=== PATIENT | male | born 1945 ===

== ENCOUNTER 2019-02-08 10:59 | Day surgery (SDC) | payer MEDICARE, SELFPAY ==
[2019-02-08] MEDS: PROPARACAINE 0.5% OPHTH SOL 2 DROPS EYE-OP (11:20)
[2019-02-08] MEDS: CATARACT EYE COMPOUND (10 DROPS/SYRINGE) 3 DROPS EYE-OP (11:23)
[2019-02-08 11:24] VITALS: BMI 25.3
--- NOTE | 2019-02-08 11:50 | PM.PREOP ---
Pre-operative Note Interval Note History & Physical reviewed/Exam performed by Physician: No Changes to H&P: No
--- NOTE | 2019-02-08 11:50 | PM.OP.1 ---
Operative Date/Time/Diagnoses Pre-op diagnosis: Nuclear Cataract Left eye Post-op diagnosis: same Procedure & Clinicians Surgeon: Esteban Sharpe Anesthesia Type: MAC +/- and Sedation Operative Notes Procedure in detail: Patient brought to the operating suite. Tetracaine drops placed in the left eye. Patient was prepped and draped in sterile manner. Wire lid speculum was placed in the eye. Betadine drops were placed on the eye. This was irrigated. Lidocaine jelly was placed on the eye. A paracentesis port was created with a side-port blade. 0.1 mL 1% preservative free lidocaine was injected into the anterior chamber. The anterior chamber was deepened with viscoelastic. 2.6 mm keratome was used to create a temporal clear corneal incision. Cystotome and Utrata forceps were used to create continuous tear capsulorrhexis. Balanced salt solution was used to hydro dissect the nucleus. The phacoemulsification handpiece was inserted and the nucleus was removed using the stop and chop technique. The irrigation aspiration handpiece was inserted and the remaining cortex was removed. Anterior chamber was deepened with viscoelastic. An Giordano ZCB00 intraocular lens with a power of 21.5 was injected into the capsular bag. Irrigation aspiration handpiece was inserted and the remaining viscoelastic was removed. Incision was hydrated with balanced salt solution and found to be leak free with pressure with Weck-Jamee sponges. 0.1 mL Vigamox injected anterior chamber. 0.3 mL Kenalog 10 mg was injected subconjunctivally. Lid speculum was removed. The patient left the operating room in excellent condition. Complications: none Post-operative Condition: stable Disposition: same day surgery
--- NOTE | 2019-02-08 12:07 | SUR.OPER ---
Supine on eye stretcher, head on extension cradle secured with tape. Arms tucked at sides with blanket. Pillow under knees.
[2019-02-08] MEDS: TRIAMCINOLONE 50 MG/5 ML VIAL INJ (12:08)
[2019-02-08] MEDS: PHENYLEPHRINE/LIDOCAINE VIAL (OR) 0.2 ML EYE-OP (12:08)
[2019-02-08] MEDS: TETRACAINE 0.5% OPHTH DROPS 4 ML 2 DROPS EYE-OP (12:09)
[2019-02-08] MEDS: CHONDROIDTIN/SOD HYALURONATE 1.05 ML SYRINGE INTRAOCULA (12:09)
[2019-02-08] MEDS: LIDOCAINE JELLY 2% 5 ML 1 APPLIC TOP (12:09)
[2019-02-08] MEDS: MOXIFLOXACIN INJ 5 MG/ML VIAL EYE-OP (12:10)
[2019-02-08] MEDS: BALANCED SALT IRRIG SOLN NO.2 500 ML, EPINEPHrine 1 MG IRR (12:10)
[2019-02-08 12:20] VITALS: BP 147/80; PULSE 60; RESP 15; TEMP 36.7; O2SAT 99
--- NOTE | 2019-02-08 13:44 | SUR.PHASEII ---
1232 Stable, ready for discharge, IV dc'd, tolerating Po well. Cheerful, questions answered by Dr. Sharpe.
== END 2019-02-08 12:38 | disposition home or self-care (01) ==
LOC: OR 11:03
PROVIDERS: PCP Family Medicine; Visit Provider Ophthalmology
PROC: (CPT 66984; principal; 2019-02-08 12:45)
DX: H25.12 Age-related nuclear cataract, left eye (principal); I10 Essential (primary) hypertension
CPT/HCPCS: 66984; J0171; J2250; J3301

== ENCOUNTER 2019-02-22 11:00 | Day surgery (SDC) | payer MEDICARE, SELFPAY ==
[2019-02-22] MEDS: PROPARACAINE 0.5% OPHTH SOL 2 DROPS EYE-OP (11:20)
[2019-02-22 11:21] VITALS: BP 163/83; PULSE 76; RESP 16; TEMP 36.1; O2SAT 98; BMI 25.3
[2019-02-22] MEDS: CATARACT EYE COMPOUND (10 DROPS/SYRINGE) 3 DROPS EYE-OP (11:25)
--- NOTE | 2019-02-22 12:30 | PM.PREOP ---
Pre-operative Note Interval Note History & Physical reviewed/Exam performed by Physician: No Changes to H&P: No
--- NOTE | 2019-02-22 12:30 | PM.OP.1 ---
Operative Date/Time/Diagnoses Pre-op diagnosis: Nuclear cataract right eye Procedure & Clinicians Procedure: Cataract Surgery Same procedure as scheduled: Yes Surgeon: Esteban Sharpe Anesthesia Type: MAC +/- and Sedation Operative Notes Procedure in detail: Patient brought to the operating suite. Tetracaine drops placed in the right eye. Patient was prepped and draped in sterile manner. Wire lid speculum was placed in the eye. Betadine drops were placed on the eye. This was irrigated. Lidocaine jelly was placed on the eye. A paracentesis port was created with a side-port blade. 0.1 mL 1% preservative free lidocaine was injected into the anterior chamber. The anterior chamber was deepened with viscoelastic. 2.6 mm keratome was used to create a temporal clear corneal incision. Cystotome and Utrata forceps were used to create continuous tear capsulorrhexis. Balanced salt solution was used to hydro dissect the nucleus. The phacoemulsification handpiece was inserted and the nucleus was removed using the stop and chop technique. The irrigation aspiration handpiece was inserted and the remaining cortex was removed. Anterior chamber was deepened with viscoelastic. An Giordano ZCB00 intraocular lens with a power of 21.5 was injected into the capsular bag. Irrigation aspiration handpiece was inserted and the remaining viscoelastic was removed. Incision was hydrated with balanced salt solution and found to be leak free with pressure with Weck-Jamee sponges. 0.1 mL Vigamox injected anterior chamber. 0.3 mL Kenalog 10 mg was injected subconjunctivally. Lid speculum was removed. The patient left the operating room in excellent condition. Complications: none Post-operative Condition: stable Disposition: same day surgery
[2019-02-22] MEDS: BALANCED SALT IRRIG SOLN NO.2 500 ML, EPINEPHrine 1 MG IRR (12:44)
[2019-02-22] MEDS: LIDOCAINE JELLY 2% 5 ML 1 APPLIC TOP (12:45)
[2019-02-22] MEDS: TETRACAINE 0.5% OPHTH DROPS 4 ML 2 DROPS EYE-OP (12:45)
[2019-02-22] MEDS: CHONDROIDTIN/SOD HYALURONATE 1.05 ML SYRINGE INTRAOCULA (12:45)
[2019-02-22] MEDS: PHENYLEPHRINE/LIDOCAINE VIAL (OR) 0.2 ML EYE-OP (12:46)
[2019-02-22] MEDS: TRIAMCINOLONE 50 MG/5 ML VIAL INJ (12:46)
[2019-02-22] MEDS: MOXIFLOXACIN INJ 5 MG/ML VIAL EYE-OP (12:46)
[2019-02-22 13:02] VITALS: BP 144/80; PULSE 65; RESP 16; TEMP 36.2; O2SAT 99
== END 2019-02-22 13:16 | disposition home or self-care (01) ==
PROVIDERS: PCP Family Medicine; Visit Provider Ophthalmology
PROC: (CPT 66984; principal; 2019-02-22 12:45)
DX: H25.11 Age-related nuclear cataract, right eye (principal); I10 Essential (primary) hypertension
CPT/HCPCS: 66984; J0171; J2250; J3301

== ENCOUNTER → 2019-03-01 08:59 | Outpatient (CLI) | payer MEDICARE, SELFPAY ==
--- NOTE | 2019-03-01 | DI.US.S_ITS ---
PROCEDURE: US RENAL COMPLETE INDICATIONS: CHRONIC KIDNEY DISEASE, STAGE 3 TECHNIQUE: Real-time scanning was performed of the kidneys and bladder, with image documentation. COMPARISON: None. FINDINGS: Kidneys: Kidneys are normal in size. Right kidney measures 11.3 cm long; left kidney measures 11.0 cm long. Right renal cortical thickness is 1.1 cm; left renal cortical thickness is 1.6 cm. Renal cortical echotexture is normal. No hydronephrosis or nephrolithiasis. No suspicious solid mass lesions, and there is one small right-sided simple cyst measuring up to 2.2 x 2.4 cm at the inferior cortex. A 1.7 cm superior simple left renal cortical cyst is present in addition to an inferior simple 1.9 cm left renal cortical cyst. Bilateral extrarenal pelvis morphology. Bladder: Pre-void bladder volume is 75 mL. Post-void residual is 25 mL. Pre-void images demonstrate no intraluminal masses or stones. On pre-void images, bilateral ureteral jets are noted with color Doppler interrogation. (Of note, ureteral jets may not be detectable in up to 25% of cases due to insufficient differences in specific gravity between ureteral and bladder urine). A small amount of debris was seen floating freely within the urine within the bladder lumen but no calculus is found. Miscellaneous: No free pelvic fluid. IMPRESSION: Bilateral extrarenal pelvis, with several small renal cortical cysts are present bilaterally. No urinary tract stone or hydronephrosis found. Note is made of a small amount of debris floating freely within the urine within the bladder lumen where no mass or calculus is identified. Overall the renal cortex thickness and craniocaudad length is normal for age. Dictated by: Forrest Dee M.D. on 03/01/2019 at 10:47 Approved by: Forrest Dee M.D. on 03/01/2019 at 10:50
== END ==
PROVIDERS: PCP Family Medicine; Visit Provider Family Medicine
DX: N18.3 Chronic kidney disease, stage 3 (moderate) (principal); N28.1 Cyst of kidney, acquired
CPT/HCPCS: 76770

== ENCOUNTER → 2019-07-12 10:35 | Outpatient (CLI) | payer MEDICARE, SELFPAY ==
--- NOTE | 2019-07-12 | DI.MRI.S_ITS ---
PROCEDURE: MR PELIS WO/W CON INDICATIONS: PROSTATE CANCER TECHNIQUE: Coronal HASTE, axial T1 FSE with fat saturation, 3-plane nonbreath-hold T2 FSE. After the administration of contrast, dynamic axial, delayed axial and coronal VIBE or 2-D FLASH with fat saturation through the pelvis. Optional diffusion weighted imaging and ADC may be performed. COMPARISON: None. FINDINGS: Image quality: Diffusion weighted and dynamic contrast enhanced images are diagnostic. Prostate: Gland size is 5.2 x 4.3 x 4.5 cm; ellipsoid gland volume is 52.3 mL. There is a lentiform T1 hyperintense area in the left transition zone in the mid gland level are most suggestive of post biopsy hemorrhage. All these findings are superimposed on mild hypertrophy of the transitional zone and central gland which demonstrates heterogeneous signal. Lesion size(s): Lesion 1: 2.7 x 1.7 cm in coronal plane. Lesion location(s) (sector): Lesion 1: Left anterior transition zone extending from mid mid gland to base. Lesion description: Lesion 1: Oval, vertically oriented mass with an indistinct margin. No encapsulation. There is likely involvement of the adjacent anterior fibromuscular stroma and slight mass effect on the mildly hypertrophied adjacent central zone with slight rightward displacement of the urethra. The portion of the tumor at the bladder base abuts, and slightly displaces the neck of the urinary bladder. T2 weighted imaging (T2WI) morphology score: Lesion 1: 5 Diffusion weighted imaging (DWI) morphology score: Lesion 1: 5 Dynamic contrast enhancement (DCE): Lesion 1: Present Lesion PI-RADS score: Lesion 1: PI-RADS 5 Genitourinary system: Bladder wall thickness is normal. Distal ureters are non distended. Bowel and peritoneum: No pathologic free pelvic fluid. Inferior colon and small bowel loops are normal in caliber. Nodes and vessels: No pelvic or inguinal adenopathy by size criteria. Iliac vessels are normal in caliber. Soft tissues: No inguinal hernias. Bones: Marrow demonstrates normal overall signal, without lesions to suggest metastases. IMPRESSION: 1. 2.7 cm PI-RADS 5 lesion suspicious for prostate carcinoma in the anterior left transition zone. 2. Probable postbiopsy changes in the left peripheral zone. 3. Mild BPH. 4. No evidence of extraprostatic bladder invasion or adenopathy. Dictated by: Camryn Smith M.D. on 07/12/2019 at 18:05 Approved by: Camryn Smith M.D. on 07/12/2019 at 18:45
== END ==
PROVIDERS: PCP Family Medicine; Referring Provider Specialist; Visit Provider Specialist
DX: C61 Malignant neoplasm of prostate (principal)
CPT/HCPCS: 72197; A9579

== ENCOUNTER → 2019-09-09 12:05 | Outpatient (CLI) | payer MEDICARE, SELFPAY ==
--- NOTE | 2019-09-09 | DI.US.S_ITS ---
PROCEDURE: US PERIPH VENOUS LOW EXTREM BI INDICATIONS: BILATERAL LEG SWELLING TECHNIQUE: Real-time imaging, as well as color and pulse Doppler interrogation, were performed of the deep veins of both legs from the inguinal ligament to the popliteal fossa. COMPARISON: None. FINDINGS: Right: The common femoral, femoral and popliteal veins are normally compressible, and free of intraluminal thrombus. Color and pulse Doppler demonstrate normal phasic intravascular flow. There is normal augmentation response to distal compression maneuver. Left: The common femoral, femoral and popliteal veins are normally compressible, and free of intraluminal thrombus. Color and pulse Doppler demonstrate normal phasic intravascular flow. There is normal augmentation response to distal compression maneuver. IMPRESSION: No evidence of deep vein thrombosis involving either the right or left lower extremities. Dictated by: Palak Rodrigues MD, PhD on 09/09/2019 at 13:05 Approved by: Palak Rodrigues MD, PhD on 09/09/2019 at 13:05
== END ==
PROVIDERS: PCP Family Medicine; Referring Provider Family Medicine; Visit Provider Family Medicine
DX: R22.43 Localized swelling, mass and lump, lower limb, bilateral (principal)
CPT/HCPCS: 93970

== ENCOUNTER → 2020-09-12 08:02 | Outpatient (CLI) | payer MEDICARE, SELFPAY ==
[2020-09-12 19:00] LABS: Bacteria Urine None Seen; RBC Urine None Seen (0-5/HPF); WBC Urine None Seen (0-5/HPF)
[2020-09-12 19:33] LABS: Add Manual Diff / Slide Review NO; Basophils Absolute Auto 0 /uL (0-100); Basophils Percent Auto 0.3 % (0-2); Eosinophils Absolute Auto 100 /uL (0-450); Eosinophils Percent Auto 1.5 % (2-4); Hematocrit 43.3 % (41-53); Hemoglobin 14.3 g/dL (13.5-17.5); Lymphocytes Absolute Auto 1800 /uL (1100-4500); Lymphocytes Percent Auto 32.8 % (25-40); Mean Corpuscular Hemoglobin 31.4 PG (26-34); Mean Corpuscular Volume 95.2 fL (80-100); Monocytes Absolute Auto 500 /uL (0-900); Monocytes Percent Auto 8.8 % (3-14); Neutrophils Absolute Auto 3100 /uL (1500-7000); Neutrophils Percent Auto 56.6 % (50-75); Platelet Count 234 X10^3/uL (150-400); Red Blood Cell Count 4.55 X10^6/uL (4.5-5.9); Red Cell Distribution Width 13.3 % (11.6-14.8); White Blood Cell Count 5.4 X10^3/uL (4.5-11.0)
[2020-09-12 19:55] LABS: Hemoglobin A1C% w Est Avg Glu 6.1 % (4.0-6.0)
[2020-09-12 19:58] LABS: Alanine Aminotransferase 17 IU/L (<50); Albumin 3.9 g/dL (3.5-5.0); Albumin Globulin Ratio 1.4 (1.0-2.8); Alkaline Phosphatase 64 U/L (38-126); Aspartate Aminotransferase 35 IU/L (17-59); BUN Creatinine Ratio 33.8 (6-22); Bilirubin Total 0.8 mg/dL (0.2-1.3); Blood Urea Nitrogen 44 mg/dL (9-20); Calcium 9.3 mg/dL (8.4-10.2); Carbon Dioxide 29 mmol/L (22-32); Chloride 98 mmol/L (98-107); Cholesterol 160 mg/dL (140-199); Globulin 2.7 g/dL (1.7-4.1); Glucose 114 mg/dL (80-110); HDL Cholesterol 66 mg/dL (40-60); HEMOLYSIS < 15 (0-50); Iron 101 ug/dL (49-181); LDL Cholesterol Calculated 71 mg/dL (<100); Potassium 4.7 mmol/L (3.4-5.1); Sodium 135 mmol/L (137-145); Total Protein 6.6 g/dL (6.3-8.2); Triglycerides 115 mg/dL (35-150)
[2020-09-12 20:03] LABS: High Sensitivity CRP - Cardiac 1.5 mg/L (1.0-3.0)
[2020-09-12 20:09] LABS: Percent Iron Saturation 31 % (20-50); Total Iron Binding Capacity 328 ug/dL (261-462)
[2020-09-12 20:16] LABS: Culture Indicated Urine Cult Not Indicated; Uric Acid Crystals Urine Many
[2020-09-12 20:31] LABS: Prostate Specific Antigen 10.2 ng/mL (0.10-4.00)
[2020-09-12 20:35] LABS: Thyroid Stimulating Hormone 2.43 uIU/mL (0.47-4.68)
[2020-09-12 20:42] LABS: Ferritin 136 ng/mL (18-464)
[2020-09-12 21:11] LABS: Folate 11.8 ng/mL (2.76-20.0); Vitamin B12 333 pg/mL (239-931)
[2020-09-12 21:48] LABS: Microalbumin Urine Random 0.8 mg/dL (0-1.6)
[2020-09-16 14:10] LABS: Methylmalonic Acid,Serum 345 nmol/L (0-378)
== END ==
PROVIDERS: Specialist; PCP Family Medicine; Visit Provider Family Medicine
DX: C61 Malignant neoplasm of prostate (principal); N52.9 Male erectile dysfunction, unspecified; E78.2 Mixed hyperlipidemia; N18.30 Chronic kidney disease, stage 3 unspecified; R97.20 Elevated prostate specific antigen [PSA]
CPT/HCPCS: 80053; 80061; 81015; 82043; 82570; 82607; 82728; 82746; 83036; 83090; 83540; 83550; 83921; 84153; 84443; 85025; 86140

== ENCOUNTER → 2021-03-05 09:02 | Outpatient (CLI) | payer MEDICARE, SELFPAY ==
[2021-03-05 20:17] LABS: Prostate Specific Antigen 10.9 ng/mL (0.10-4.00)
== END ==
PROVIDERS: PCP Family Medicine; Visit Provider Specialist
DX: C61 Malignant neoplasm of prostate (principal)
CPT/HCPCS: 84153

== ENCOUNTER → 2021-05-15 08:35 | Outpatient (CLI) | payer MEDICARE, SELFPAY ==
[2021-05-15 19:00] LABS: Add Manual Diff / Slide Review NO; Basophils Absolute Auto 0 /uL (0-100); Basophils Percent Auto 0.3 % (0-2); Eosinophils Absolute Auto 100 /uL (0-450); Hematocrit 42.9 % (41-53); Hemoglobin 14.7 g/dL (13.5-17.5); Lymphocytes Absolute Auto 1700 /uL (1100-4500); Lymphocytes Percent Auto 35.4 % (25-40); Mean Corpuscular HGB Conc 34.2 % (30-36); Mean Corpuscular Hemoglobin 31.1 PG (26-34); Mean Corpuscular Volume 90.9 fL (80-100); Monocytes Absolute Auto 300 /uL (0-900); Neutrophils Absolute Auto 2700 /uL (1500-7000); Neutrophils Percent Auto 55.3 % (50-75); Platelet Count 218 X10^3/uL (150-400); Red Blood Cell Count 4.72 X10^6/uL (4.5-5.9); Red Cell Distribution Width 12.7 % (11.6-14.8); White Blood Cell Count 4.9 X10^3/uL (4.5-11.0)
[2021-05-15 19:12] LABS: Hemoglobin A1C% w Est Avg Glu 6.4 % (4.0-6.0)
[2021-05-15 19:14] LABS: Alanine Aminotransferase 20 IU/L (<50); Albumin Globulin Ratio 1.5 (1.0-2.8); Alkaline Phosphatase 53 U/L (38-126); Aspartate Aminotransferase 32 IU/L (17-59); BUN Creatinine Ratio 25.8 (6-22); Bilirubin Unconjugated 0.9 mg/dL (0.0-1.1); Blood Urea Nitrogen 32 mg/dL (9-20); Calcium 9.3 mg/dL (8.4-10.2); Carbon Dioxide 34 mmol/L (22-32); Chloride 100 mmol/L (98-107); Cholesterol 156 mg/dL (140-199); Estimated Glomerular Filt Rate 56.8 mL/min (>60); Gamma Glutamyl Transpeptidase 26 U/L (15-73); Globulin 2.6 g/dL (1.7-4.1); Glucose 123 mg/dL (80-110); HDL Cholesterol 56 mg/dL (40-60); HEMOLYSIS < 15 (0-50); LDL Cholesterol Calculated 80 mg/dL (<100); Potassium 3.7 mmol/L (3.4-5.1); Sodium 138 mmol/L (137-145); Total Protein 6.6 g/dL (6.3-8.2); Triglycerides 102 mg/dL (35-150)
== END ==
PROVIDERS: PCP Family Medicine; Visit Provider Family Medicine
DX: N18.31 Chronic kidney disease, stage 3a (principal); Z79.899 Other long term (current) drug therapy; I10 Essential (primary) hypertension; Z68.25 Body mass index [BMI] 25.0-25.9, adult; E78.5 Hyperlipidemia, unspecified
CPT/HCPCS: 80053; 80061; 80076; 82977; 83036; 85025

== ENCOUNTER → 2021-09-04 10:16 | Outpatient (CLI) | payer MEDICARE, SELFPAY ==
[2021-09-04 20:00] LABS: Prostate Specific Antigen 10.6 ng/mL (0.10-4.00)
== END ==
PROVIDERS: PCP Family Medicine; Visit Provider Family Medicine
DX: R97.20 Elevated prostate specific antigen [PSA]
CPT/HCPCS: 84153

== ENCOUNTER → 2022-03-10 09:03 | Outpatient (CLI) | payer MEDICARE, SELFPAY ==
[2022-03-10 20:05] LABS: Prostate Specific Antigen 13.1 ng/mL (0.10-4.00)
== END ==
PROVIDERS: PCP Family Medicine; Visit Provider Specialist
DX: C61 Malignant neoplasm of prostate (principal)
CPT/HCPCS: 84153

== ENCOUNTER → 2022-05-07 09:31 | Outpatient (CLI) | payer MEDICARE, SELFPAY ==
[2022-05-07 19:51] LABS: Prostate Specific Antigen 12.5 ng/mL (0.10-4.00)
== END ==
PROVIDERS: PCP Physician Assistant; Visit Provider Specialist
DX: C61 Malignant neoplasm of prostate (principal)
CPT/HCPCS: 84153

== ENCOUNTER → 2022-05-08 11:40 | Outpatient (CLI) | payer MEDICARE, SELFPAY ==
--- NOTE | 2022-05-08 11:41 | DI.MRI.S_ITS ---
PROCEDURE: MR PELVIS WO/W CON INDICATIONS: prostate cancer TECHNIQUE: Coronal HASTE, axial T1 FSE with fat saturation, 3-plane nonbreath-hold T2 FSE. After the administration of contrast, dynamic axial, delayed axial and coronal VIBE or 2-D FLASH with fat saturation through the pelvis. Optional diffusion weighted imaging and ADC may be performed. COMPARISON: [facility], MR, MR PELVIS WO/W CON, 07/12/2019, 11:01. FINDINGS: Image quality: Suboptimal due to motion artifact. Images are denoted as (series #/image #). Prostate: Gland size is 5.5 x 4.6 x 5.4 cm; ellipsoid gland volume is 69 mL. Lesion #1: Size: 2.7 x 1.4 cm measured in the coronal plane as before (08/18) previously 2.7 x 1.7 cm no significant change. Location: Left anterior transition zone, base-mid gland, likely also involving the anterior fibromuscular stroma T2 signal: Homogeneously hypointense. The finding appears encapsulated on coronal images. DWI/ADC signal: Marked DWI hyperintensity and ADC hypointensity DCE: Negative TOR: No large volume bulky extraprostatic extension. However there is long segment abutment of the lesion against the prostate pseudocapsule, difficult to exclude early extraprostatic extension. Seminal vesicle invasion: Absent PI-RADS: T2 signal - 2; ADC - 5; DCE - negative; Overall score: PI-RADS 3. Genitourinary system: Bladder wall thickness is normal. Distal ureters are non distended. Bowel and peritoneum: No pathologic free pelvic fluid. Inferior colon and small bowel loops are normal in caliber. Nodes and vessels: No pelvic or inguinal adenopathy by size criteria. Iliac vessels are normal in caliber. Bones: No definite suspicious focal lesion identified. IMPRESSION: 1. No significant change in size of the previously demonstrated lesion at the left anterior transition zone. Appearance on the current study is suggestive of PI-RADS Category 3. 2. No suspicious lymph nodes identified in the imaged pelvis. Dictated by: Fabricio Ramirez M.D. on 05/09/2022 at 8:30 Approved by: Fabricio Ramirez M.D. on 05/09/2022 at 9:00
== END ==
PROVIDERS: PCP Physician Assistant; Referring Provider Specialist; Visit Provider Specialist
DX: C61 Malignant neoplasm of prostate (principal)
CPT/HCPCS: 72197; A9579

== ENCOUNTER → 2022-08-05 12:08 | Outpatient (CLI) | payer MEDICARE, SELFPAY ==
--- NOTE | 2022-08-05 12:11 | DI.MRI.S_ITS ---
PROCEDURE: MR PELIS WO/W CON INDICATIONS: Prostate CA TECHNIQUE: Coronal HASTE, axial T1 FSE with fat saturation, 3-plane nonbreath-hold T2 FSE. After the administration of contrast, dynamic axial, delayed axial and coronal VIBE or 2-D FLASH with fat saturation through the pelvis. Optional diffusion weighted imaging and ADC may be performed. COMPARISON: [facility], MR, MR PELVIS WO/W CON, 05/08/2022, 12:04. FINDINGS: Image quality: Diffusion weighted and dynamic contrast enhanced images are diagnostic. Prostate: Gland size is 4.5 x 5.3 x 5.5 cm; ellipsoid gland volume is 68.2 mL. Lesion size(s): Lesion 1: Approximately 2.7 x 1.6 cm in coronal plane, stable. Lesion 2: About 0.6 cm in the axial plane. Lesion 3: About 1.3 cm in the AP direction measured on the axial ADC map. Lesion location(s) (sector): Lesion 1: Left anterior transition zone based to mid gland and involving anterior fibromuscular stroma. Lesion 2: Right posteromedial peripheral zone at the apex. Lesion 3: Right lateral peripheral zone at the mid gland Lesion description: Lesion 1: Homogeneously hypointense oval lesion with indistinct margin. Slight distortion of the prostate gland contour without significant change compared to prior studies. Lesion 2: Indistinct focus of moderate T2 hypointensity. Lesion 3: Lenticular focus in the peripheral zone likely involving the pseudo capsule. Indistinct mild T2 hypointensity in this area. T2 weighted imaging (T2WI) morphology score: Lesion 1: A discrete capsule is no longer seen. Five Lesion 2: Four Lesion 3: One Diffusion weighted imaging (DWI) morphology score: Lesion 1: Five Lesion 2: Four Lesion 3: Four Dynamic contrast enhancement (DCE): Lesion 1: Absent Lesion 2: Absent Lesion 3: Present Lesion PI-RADS score: Lesion 1: PI-RADS five Lesion 2: PI-RADS four Lesion 3: PI-RADS four Genitourinary system: Bladder wall thickness is normal. Distal ureters are non distended. Bowel and peritoneum: No pathologic free pelvic fluid. Inferior colon and small bowel loops are normal in caliber. Moderate sigmoid colon diverticulosis. Nodes and vessels: No suspicious pelvic nodes. Iliac vessels are normal in caliber. Soft tissues: Small left fat containing inguinal hernia. Bones: Marrow demonstrates normal overall signal, without lesions to suggest metastases. IMPRESSION: 1. There are PI-RADS four and five lesions in the prostate gland, the largest of which is stable in size and characteristics compared to prior studies. 2. Lesion 2. Was present previously without significant change. Lesion 3. Appears more prominent on the current study. 3. No new adenopathy. Dictated by: Camryn Smith M.D. on 08/05/2022 at 16:30 Approved by: Camryn Smith M.D. on 08/05/2022 at 16:56
== END ==
PROVIDERS: PCP Physician Assistant; Referring Provider Specialist; Visit Provider Specialist
DX: C61 Malignant neoplasm of prostate (principal); N13.8 Other obstructive and reflux uropathy; K40.90 Unilateral inguinal hernia, without obstruction or gangrene, not specified as recurrent
CPT/HCPCS: 72197; A9579

== ENCOUNTER → 2022-08-07 09:19 | Outpatient (CLI) | payer MEDICARE, SELFPAY ==
[2022-08-07 20:44] LABS: Prostate Specific Antigen 13.3 ng/mL (0.10-4.00)
== END ==
PROVIDERS: PCP Physician Assistant; Visit Provider Specialist
DX: C61 Malignant neoplasm of prostate (principal)
CPT/HCPCS: 84153

== ENCOUNTER → 2023-02-11 12:14 | Outpatient (CLI) | payer MEDICARE, SELFPAY ==
--- NOTE | 2023-02-11 12:38 | DI.MRI.S_ITS ---
PROCEDURE: MR PELIS WO/W CON INDICATIONS: prostate cancer TECHNIQUE: Coronal HASTE, axial T1 FSE with fat saturation, 3-plane nonbreath-hold T2 FSE. After the administration of contrast, dynamic axial, delayed axial and coronal VIBE or 2-D FLASH with fat saturation through the pelvis. Optional diffusion weighted imaging and ADC may be performed. COMPARISON: [facility], MR, MR PELVIS WO/W CON, 05/08/2022, 12:04. [facility], MR, MR PELVIS WO/W CON, 08/05/2022, 12:47. FINDINGS: Image quality: Diffusion weighted and dynamic contrast enhanced images are diagnostic. Prostate: Gland size is 4.8 x 6.1 x 5.3 cm; ellipsoid gland volume is a 1 mL. Lesion 1: Location: Left anterior transition zone, best seen on axial series 4 image 13 and series 5, image 9 Size: 2.2 x 1.5 centimeters, unchanged in size compared with prior using similar measuring techniques. T2 signal: Partially capsulated, moderately T2 hypointense signal. DWI: Markedly hyperintense ADC: Markedly hypointense Enhancement: Positive Extracapsular extension: No PI-RADS score: 3 Lesion 2: Location: Right medial peripheral zone, apex. Best seen on series 4, image 20 and series 6, image 10 Size: 0.5 x 0.6 centimeter, unchanged. T2 signal: Hypointense DWI: Markedly hyperintense ADC: Markedly hypointense Enhancement: Positive Extracapsular extension: No PI-RADS score: 4 Lesion 3: Location: Right lateral peripheral zone, mid gland. Series 4, image 16 and series 5, image 13. Size: 1.3 x 0.6 centimeters T2 signal: Markedly hypointense DWI: Markedly hyperintense ADC: Markedly hypointense Enhancement: Positive Extracapsular extension: Broad-based capsular contact PI-RADS score: 4 Genitourinary system: Bladder wall thickness is normal. Distal ureters are non distended. Bowel and peritoneum: No pathologic free pelvic fluid. Inferior colon and small bowel loops are normal in caliber. Colonic diverticulosis without evidence of diverticulitis. Nodes and vessels: No pelvic or inguinal adenopathy by size criteria. Iliac vessels are normal in caliber. Soft tissues: Fat containing left inguinal hernia, which is small. Bones: Marrow demonstrates normal overall signal, without lesions to suggest metastases. IMPRESSION: The previously described PI-RADS 5 lesion in the left anterior peripheral zone has less conspicuous properties on today's examination, as the partial capsule is seen. This is re-characterized as a PI-RADS 3 lesion on today's exam. Similar appearance of the PI-RADS 4 lesions in the peripheral zone, as above. No enlarged pelvic chain lymph nodes by size criteria. No aggressive osseous abnormality. Dictated by: Salazar Segura M.D. on 02/11/2023 at 15:20 Approved by: Salazar Segura M.D. on 02/11/2023 at 15:42
== END ==
PROVIDERS: PCP Physician Assistant; Referring Provider Specialist; Visit Provider Specialist
DX: C61 Malignant neoplasm of prostate (principal)
CPT/HCPCS: 72197

== ENCOUNTER → 2023-02-12 12:52 | Outpatient (CLI) | payer MEDICARE, SELFPAY ==
[2023-02-12 19:59] LABS: Prostate Specific Antigen 14.9 ng/mL (0.10-4.00)
== END ==
PROVIDERS: PCP Physician Assistant; Visit Provider Specialist
DX: N40.1 Benign prostatic hyperplasia with lower urinary tract symptoms (principal); N13.8 Other obstructive and reflux uropathy
CPT/HCPCS: 84153

== ENCOUNTER → 2023-03-25 10:51 | Outpatient (CLI) | payer MEDICARE, SELFPAY ==
[2023-03-25 20:07] LABS: Add Manual Diff / Slide Review NO; Basophils Absolute Auto 0 /uL (0-100); Basophils Percent Auto 0.7 % (0-2); Eosinophils Absolute Auto 100 /uL (0-450); Eosinophils Percent Auto 1.2 % (2-4); Hematocrit 43.5 % (41-53); Hemoglobin 14.8 g/dL (13.5-17.5); Lymphocytes Absolute Auto 1800 /uL (1100-4500); Lymphocytes Percent Auto 30.6 % (25-40); Mean Corpuscular Volume 94.2 fL (80-100); Monocytes Absolute Auto 400 /uL (0-900); Neutrophils Absolute Auto 3600 /uL (1500-7000); Neutrophils Percent Auto 60.5 % (50-75); Platelet Count 222 X10^3/uL (150-400); Red Blood Cell Count 4.62 X10^6/uL (4.5-5.9); Red Cell Distribution Width 13.2 % (11.6-14.8); White Blood Cell Count 5.9 X10^3/uL (4.5-11.0)
[2023-03-25 20:23] LABS: Alanine Aminotransferase 18 IU/L (<50); Albumin Globulin Ratio 1.5 (1.0-2.8); Alkaline Phosphatase 60 U/L (38-126); Aspartate Aminotransferase 27 IU/L (17-59); BUN Creatinine Ratio 25.2 (6-22); Bilirubin Total 1.2 mg/dL (0.2-1.3); Blood Urea Nitrogen 30 mg/dL (9-20); Calcium 9.5 mg/dL (8.4-10.2); Carbon Dioxide 32 mmol/L (22-32); Chloride 100 mmol/L (98-107); Cholesterol 162 mg/dL (140-199); Estimated Glomerular Filt Rate > 60 mL/min (>60); Globulin 2.7 g/dL (1.7-4.1); Glucose 117 mg/dL (80-110); HDL Cholesterol 66 mg/dL (40-60); HEMOLYSIS < 15 (0-50); LDL Cholesterol Calculated 69 mg/dL (<100); Sodium 139 mmol/L (137-145); Total Protein 6.7 g/dL (6.3-8.2); Triglycerides 135 mg/dL (35-150)
[2023-03-25 22:30] LABS: Prostate Specific Antigen Scrn 12.8 ng/mL (0.1-4.0)
== END ==
PROVIDERS: PCP Physician Assistant; Visit Provider Physician Assistant
DX: Z79.899 Other long term (current) drug therapy (principal); R73.03 Prediabetes; E78.5 Hyperlipidemia, unspecified; Z12.5 Encounter for screening for malignant neoplasm of prostate; I10 Essential (primary) hypertension; N18.31 Chronic kidney disease, stage 3a
CPT/HCPCS: 80053; 80061; 83036; 85025; G0103

== ENCOUNTER 2023-06-22 06:27 | Inpatient (IN) | payer MEDICARE, SELFPAY ==
[2023-06-15 13:28] VITALS: BMI 25.0
[2023-06-22] VITALS (14 sets, daily range): BP systolic 104–151; BP diastolic 52–81; PULSE 46–68; RESP 14–19; TEMP 36.1–37.1; O2SAT 94–100; BMI 25.0
--- NOTE | 2023-06-22 | PATH_ITS ---
[facility] Accession Number: [id number] No. of containers..03 Tissue . 01 Material submitted: . PART A: lymph node - RIGHT PELVIC LYMPH NODE PART B: lymph node - LEFT PELVIC LYMPH NODE PART C: prostate - PROSTATE WITH ATTACHED SEMINAL VESICLES . 01 Diagnosis: A. RIGHT PELVIC LYMPH NODE, REGIONAL RESECTION: Two lymph nodes negative for malignancy. . B. LEFT PELVIC LYMPH NODE, REGIONAL RESECTION: One lymph node, negative for malignancy. . C. PROSTATE WITH SEMINAL VESICLES, RADICAL RETROPUBIC PROSTATECTOMY (NERVE SPARING): Acinar adenocarcinoma; see case summary below. . CASE SUMMARY - PROSTATE GLAND Specimen Procedure: Radical prostatectomy. Prostate size Prostate weight in grams: 80. Prostate size in centimeters: 5.9. Tumor Histologic type: Acinar adenocarcinoma, conventional (usual). Histologic grade Grade: Grade group 2 (Marydel score 3+4=7). Percentage of pattern 4: 11-20%. Intraductal carcinoma: Not identified. Cribriform glands: Present. Treatment effect: No known presurgical therapy. Tumor quantitation Tumor quantitation: Via percentage Estimated precentage of prostate involved by tumor: 31-40%. Extraprostatic extension: Not identified. Urinary bladder neck invasion: Present. Seminal vesicle invasion: Not identified. Lymphovascular invasion: Not identified. Perineural invasion: Present. Margins Margin status: Invasive carcinoma present at margin. Linear length of margins involved by carcinoma: Greater than 3 mm. Margins involved by invasive carcinoma: Left bladder neck. Marydel pattern at margin involved by carcinoma: Pattern 3. Regional lymph nodes Regional lymph node status: Regional lymph nodes present. All regional lymph nodes negative for tumor. Number of lymph nodes examined: Three. pTNM Classification (AJCC 8th Edition) Modified Classification: Not applicable. PT Category: pT3a (invasion of bladder neck). PN Category: pN0 Additional findings: Nodular prostatic hyperplasia. [facility] 06/26/2023 1721 Local . 01 Comment: As part of routine quality assurance specialist, Dr. Velasquez has reviewed block C22 of this case and agrees with the presence of adenocarcinoma in the left bladder neck section, and at inked/cauterized bladder neck margin. . 01 Electronically signed: . Ant Guevara MD, PhD, Pathologist NPI- [id number] . 01 Gross description: . A. Received in formalin labeled with the patient's name, , and right pelvic lymph node, and consists of a fragment of yellow lobulated adipose measuring 5.0 x 2.9 x 1.2 cm. Palpation reveals two shaffer lymph node candidates ranging from 1.3 to 3.3 cm in greatest dimension. Promotions Officer sections are submitted as follows: A1: Single bisected lymph node candidate. A2: Single bisected lymph node candidate. B. Received in formalin labeled wiht the patient's name, , and left pelvic lymph node, and consists of a fragment of yellow lobulated adipose measuring 3.7 x 2.4 x 1.3 cm. Palpation reveals a single shaffer lymph node candidate measuring 2.3 cm in greatest dimension. The lymph node candidate is bisected, and submitted in cassette B1. C. Received in formalin labeled with the patient's name, , and prostate with attached seminal vesicle, and consists of a prostate with attached seminal vesicles weighing 80 grams and measuring 5.2 cm from superior to inferior, 5.9 cm from medial to lateral, and 5.5 cm from anterior to posterior. The external surface is shaffer and roughened, and the urethra is probed patent. The right seminal vesicle and vas deferens measure 2.5 x 1.7 cm, and the left seminal vesicle and vas deferens measure 2.2 x 1.5 cm. The right anterior margin is inked blue, the left anterior margin is inked green, and the posterior margin is inked black. The specimen is serially sectioned from apex to base into 10 slices to reveal a shaffer, nodular with an ill-defined, firm lesion identified measuring 1.7 x 1.5 x 1.3 cm within the left anterior quadrant of slices 5-8. The lesion measures 0.3 cm from the nearest green-inked margin. Promotions Officer sections are submitted as follows: C1: Right apex margin, perpendicular. C2: Left apex margin, perpendicular. C3: Promotions Officer slice 3, left anterior quadrant. C4-C8: Entire slice 4 (left half in 3 sections C6-C8). C9-C13: Entire slice 5 (left half in 3 sections). C14-C17: Entire slice 6 (left half in 3 sections). C19: Promotions Officer slice 7, left anterior quadrant. C20: Promotions Officer slice 8, left anterior quadrant. C21: Right base margin, perpendicular. C22: Left base margin, perpendicular. C23: Right seminal vesicle. C24: Left seminal vesicle and vas deferens. ([id number]) /[facility] 06/24/2023 1135 Local . 01 Pathologist provided ICD-10: C61 . 01 CPT . 381208, 210321, [id number] Specimen Comment: A courtesy copy of this report has been sent to [phone] Performed at: 01 [facility] [address] [place] [address], [place], [place] [id number] MD Karl Tipton MD Phone: [phone]
--- NOTE | 2023-06-22 07:05 | PM.PREOP ---
Pre-operative Note Interval Note History & Physical reviewed/Exam performed by Physician: Yes Changes to H&P: No
[2023-06-22] MEDS: LACTATED RINGERS 1,000 ML 21 ML IV (07:32)
[2023-06-22 07:41] LABS: Hematocrit 41.3 % (41-53); Hemoglobin 14.2 g/dL (13.5-17.5)
[2023-06-22] MEDS: CEFAZOLIN 2 GM/100 ML PREMIX 100 ML IV (08:03)
--- NOTE | 2023-06-22 08:30 | SUR.OPER ---
Supine on padded OR bed, head on pillow, arms secured on padded arm boards at <90 degrees abduction, legs uncrossed, safety belt at thigh, tape over blanket over lower legs.
[2023-06-22 08:31] LABS: Appearance Urine UA CLEAR; Bilirubin Urine UA NEGATIVE (NEGATIVE); Color Urine UA YELLOW; Glucose Urine UA NEGATIVE (Negative); Ketones Urine UA NEGATIVE (NEGATIVE); Leukocyte Esterase Urine UA NEGATIVE (NEGATIVE); Nitrite Urine UA NEGATIVE (Negative); Occult Blood Urine UA 3+ (Negative); Protein Urine UA NEGATIVE (Negative); Urobilinogen Urine UA 0.2 E.U./dL (0.2)
[2023-06-22 08:41] LABS: Bacteria Urine None Seen; Culture Indicated Urine Cult Not Indicated; RBC Urine 5-10/HPF (0-5/HPF); Squamous Epithelial Cell Urine None Seen (0-5/HPF); Urine Volume 10mL (spun); WBC Urine 0-1/HPF (0-5/HPF)
[2023-06-22] MEDS: TRANEXAMIC ACID 1,000 MG in SODIUM CHLORIDE 0.9% 100 ML 200 MG IV (08:42)
[2023-06-22] MEDS: BUPIVACAINE LIPOSOME 266 MG/20 ML VIAL INJ (09:38)
[2023-06-22] MEDS: ACETAMINOPHEN IV 1,000 MG/100 ML VIAL 400 MG IV (10:20)
[2023-06-22] MEDS: OXYCODONE IR 5 MG TABLET PO (11:04)
--- NOTE | 2023-06-22 12:25 | P.OP_ITS ---
Operative Date/Time/Diagnoses Date of procedure: 06/22/23 Time of procedure: 10:30 Pre-op diagnosis: 1. Prostate cancer. Post-op diagnosis: same Procedure & Clinicians Procedure: 1. Radical retropubic prostatectomy and bilateral pelvic lymphadenectomy (nerve- sparing). Same procedure as scheduled: Yes Surgeon: Remy Bucio Harbour Master: Radhika Galan Click Yes if Unassisted: No Anesthesia Type: General and Local (1.33% Exparel diluted 50:50.) Operative Notes Findings: 1. Essentially midline lower abdominal wall, and pelvic retroperitoneal tissue planes. 2. Bilateral pelvic lymph were visibly and palpably grossly normal. Closure Type: primary Specimen(s): none sent (1. Bilateral pelvic lymph nodes. 2. Prostate with attached seminal vesicles.) Applied: catheter (Eighteen [place] Islander silicone 2 way catheter to gravity drainage.) Estimated Blood Loss (mL): 150 Blood products transfused: none Procedure in detail: An first assistant was integral and required for performance of this operation for purposes of retraction, visualization, hemostasis, and suturing. The patient was positioned in supine administered general anesthesia. The abdomen, genitalia, and groin were then prepped and draped in sterile fashion. A [address] [place] [address] Ahmadi catheter was then inserted lower urinary tract, the balloon inflated to 20 cc, and was placed to gravity drainage. A midline infraumbilical incision was made just above the pubic symphysis and the subcutaneous fat and midline rectus fascia were divided using blunt, cautery, and sharp technique. The midline rectus musculature was then carefully divided and retracted laterally. Using blunt dissection the anterior and lateral pelvic sidewalls were carefully exposed. Next, bilateral pelvic lymph node dissection was conducted using the same steps and maneuvers as follows: The thin adventitia overlying the external iliac vein was elevated and divided longest length. Obturator coretta packet was then carefully mobilized off the lateral pelvic sidewall. The obturator nerve and vasculature was identified and preserved in both instances. The LigaSure impact device was then employed to divide the coretta chain proximally at bony pelvic sidewall and distally close to the iliac bifurcation. Each specimen was labeled as to the site of procurement and submitted to pathology for routine gross and microscopic examination. Next, the endopelvic fascia was divided on either side of the prostate. The dorsal venous complex was then gathered and a large Flora clamp was applied. An O PDS was then placed just beneath the pubic arch in the midline in a ckxcus-dw-ycune fashion and tied down snugly for hemostasis. The LigaSure impact device was then utilized to divide the dorsal venous complex distal to this ligature. Hemostasis was excellent. Careful dissection in the area of the prostate apex to identify the urethra was then undertaken. A right angle clamp was then utilized to elevate the urethra end of view. The urethra was then transected just distal to the prostate apex. Now the Y of the Ahmadi catheter was divided distal to the urethral meatus and was then brought into the field to allow retraction mobilization of the prostate anteriorly and cranially. The rectal urethralis musculature was then carefully divided posterior to the urethral channel. A plane was developed between the posterior prostate and the anterior rectal wall using blunt dissection. The prostatic fascia was then d ivided longitudinally the lateral aspect of the prostate bilaterally and was then mobilized and rolled posteriorly towards the rectum. Now with vascular pedicles expose the structures were isolated and small bundles and transected with either the use of the impact LigaSure device with or without application of locking plastic Humalog clips. Now with the prostate mobilized anteriorly and cranially the fascia was divided transversely over the base of the seminal vesicles and ampulla of the vas. The appropriate plane was then developed. Each seminal vesicle was carefully isolated and medium plastic Humalog clips were then applied where indicated for hemostasis. Now the ampulla of the vas were each isolated. Large Humalog clips were applied proximally and distally with interval sharp division. Now the smooth muscle of the bladder neck was carefully divided circumferentially at its interface with the prostate base using primarily blunt technique. A couple of locations and LigaSure impact device was utilized as well. Now the urethra at the interface of the bladder neck and prostate base was divided circumferentially. The balloon was then deflated and the specimen was handed off the field for routine gross and microscopic examination. The bladder neck was then repaired using an imbricating technique with 4-0 Monocryl. Next, the Essex sound was advanced through the urethral meatus and brought down to the level of the urethral stone for the flanges were then engaged for optimal visualization. To 0 Monocryl were then placed at the 2, 4, 6, 8, and 10 positions from outside to inside at this site. The same sutures were in turn then passed from inside, 2 outside through the neobladder neck under direct visualization. The Darius sound was then removed and an 18 [place] silicone catheter was then advanced into the penile meatus and brought out at the site of anastomosis. The catheter was then guided with its tip into the bladder lumen under direct visualization. The balloon was then inflated to 15 cc. Each suture was then tied down snugly thus completing the vesicourethral anastomosis. Next, a 15 [place] Krishna drain was passed from inside out to the right of the midline incision. This was secured to the skin using 2-0 silk utilizing a Elver sandal technique in usual fashion. The distal end of the drain was carefully positioned between the anterior bladder wall and pubis. The midline fascia was then reapproximated using a running 0 PDS starting at each the superior, and inferior apex and then running fashion meeting 1 another near the midpoint of the incision where the 2 sutures were tied to 1 another. The subcutaneous Daya's fascia was then closed using running 2-0 Vicryl in a running fashion. The skin was then reapproximated using a 4-0 Monocryl utilizing a subcuticular technique. Telfa gauze was then trimmed to appropriate size and dimension to fit over the midline incision and the drain site. Over each of these a transparent Tegaderm was then applied for a bio occlusive finish. A Ahmadi catheter was placed to gravity drainage. The Krishna drain was placed to a Bautista-Gonzáles self suction. The patient was then awakened, transferred to [facility], then transported recovery in stable condition. Complications: none Post-operative Condition: stable Disposition: PACU Plan for aftercare: Admit to acute care.
[2023-06-22] MEDS: LACTATED RINGERS 1,000 ML 125 ML IV ×2 (12:33→20:31)
[2023-06-22] MEDS: ATORVASTATIN 20 MG TABLET 10 MG PO (20:33)
[2023-06-22] MEDS: hydroCHLOROthiazide 25 MG TABLET 12.5 MG PO (20:34)
[2023-06-22] MEDS: lisinopriL 20 MG TABLET PO (20:35)
[2023-06-22] MEDS: ACETAMINOPHEN 325 MG TABLET 975 MG PO (23:42)
[2023-06-23] MEDS: LACTATED RINGERS 1,000 ML 125 ML IV (04:20)
[2023-06-23 04:22] VITALS: BP 135/69; PULSE 62; RESP 16; TEMP 36.8; O2SAT 95
[2023-06-23] MEDS: ACETAMINOPHEN 325 MG TABLET 975 MG PO ×3 (05:54→16:49)
--- NOTE | 2023-06-23 06:28 | PC.NURSE ---
Ahmadi care & pericare done twice this shift, was leaking blood around the meatus last evening. Noted very scant blood in the meatus this morning. Pain level 2-3 & requested only Tylenol for pain 975 mg. of Tylenol administered X 2 doses this shift. Will cont. POC & monitor.
[2023-06-23 08:00] VITALS: BP 143/68; PULSE 65; RESP 16; TEMP 37.2; O2SAT 95
[2023-06-23] MEDS: hydroCHLOROthiazide 25 MG TABLET 12.5 MG PO ×2 (08:40→20:18)
[2023-06-23 08:41] VITALS: BP 143/68; PULSE 65
[2023-06-23] MEDS: lisinopriL 20 MG TABLET PO ×2 (08:41→20:19)
[2023-06-23] MEDS: METOPROLOL IR 25 MG TABLET PO (08:41)
[2023-06-23] MEDS: ENOXAPARIN 40 MG/0.4 ML SYRINGE SUBCUT (08:41)
--- NOTE | 2023-06-23 12:27 | CM.DANOTE ---
Initial DCP Assessment Visit Note Reviewed EMR and team rounds for pt's medical status and anticipated home d/c needs. Met with pt at bedside to introduce self and role, pt was found to be sitting upright in his recliner, smiling, able to discuss his preferences for d/c. Pt resides independently with his spouse in their own home in [facility]. He does not use DME at baseline, and will plan to d/c home tomorrow am with his spouse transporting. He does have a ferry reservation, however if his discharge is delayed, this REGISTERED MIDWIFE will provide him with a Medical Priority ferry boarding pass. Payor: Medicare Attending: Dr. Segura Pt is a 77 year-old M who was admitted yesterday following a planned prostatectomy and bilateral pelvic lymphadenectomy due to progressing prostate cancer. He was initially dx w/prostate cancer on 05/12/19. He's been monitored with regular PSA checks and imaging, which recently showed the already known lesion to have grown in size and was beginning to invade surrounding tissue. He has not required any treatment until this point other than monitoring. Pt states that he already has arrangements made for OP Urology f/u to review the pathology report and discuss further tx needs. DCP will continue to follow and assist with any further evolving needs. 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 Yes Advance Directives on File No History Provided By Patient,Medical Record Has Patient been admitted in last 30 No days? Prior Living Arrangements House Household Members significant other Type of transporation used prior to Drives own vehicle admit Independent with ADL's Yes Is patient alert and oriented? Yes Comment N/A Caregiver for Another No Comment No discharge planning needs identified at this time. Barriers to Discharge No Discharge Plan Home Transportation Arrangement Spouse Referrals Initiated None needed Additional Comment Pt has a planned post-op visit with Urology OP to review pathology and remove the catheter. Whiteboard Updated in Patient Room with Yes name and ext. # of Cylinder Die Machine Helper Review Status In Process Please Provide Date Initial DC 06/23/23 Assessment Was Performed Pre-Anesthesia Assessment Start: 06/15/23 13:28 Freq: Status: Active Protocol: Document 06/15/23 13:28 CAB (Rec: 06/15/23 14:31 CAB [id number]) Pre-Anesthesia Assessment Patient Information Reviewed Via Phone Assessment Assessment Completed With Patient Primary Care Provider Lisa Koenig Seen Specialist in Last 12 Months Yes Specialist Seen General surgeon,Urologist Primary Language Puerto Rican Preferred Language Puerto Rican Accounts Receivable Executive Required No Height 182.88 cm Weight 83.915 kg Body Mass Index (BMI) 25.0 Hearing Ability Normal Visual Assist Glasses Dentition Type Teeth, Natural Present Barriers to Learning None Hx Anesthesia Reactions Yes: Nausea w/ankle surgery, nothing since Hx Family Anesthesia Reaction No Hx Malignant Hyperthermia No Hx Blood Transfusions No Hx Blood Transfusion Reaction No Anesthesia Review Requested No Reel System Operator No alcohol intake current alcohol intake frequency 0-2 drinks per day Alcohol Intake Frequency Other: Holding week of surgery Smoking Status Never smoker Substance Use Type does not use Pain Present Pain Reported Musculoskeletal Symptoms Joint Pain History of Falling (Recent or History of No ) Patient is completely paralyzed or No completely immobile Mental Status Oriented to own ability Is patient on oxygen? No Does patient have MOLINA/SOB No Hx Sleep Apnea No CPAP/BIPAP use not prescribed Currently Taking a Beta Leonel Yes: Metoprolol Can You Climb a Flight of Stairs Without Yes SOB Hx Chest Pain No Hx SOB No Hx Syncope or Dizziness No Anti-Coagulant Therapy No Has a Commutator Repairer No Cardiac Testing No Hx Pacemaker/ICD No Pacemaker Rep Required? No Cardiac Clearance Received Not Applicable Diet Type At Home Regular Dysphagia No Gastrointestinal Symptoms None Genitourinary Symptoms Change in Urinary Stream Bladder Pattern Frequency,Nocturia Urinary Catheter Present No Hx Urinary Self Catheterization No Diabetes No HgbA1C 6.0 Date 03/25/23 Hx Drug Resistant Organism No Presence of External or Internal Medical Yes: Lumbar hardware, rosita eye Devices IOLs Received a COVID vaccine? Yes Received all doses? No Marital Status Lives With significant other Current Living Arrangements House Number of Floors (Floors) One Floor Support System Significant Other Does the Patient Have Assistance After Yes Surgery Patient Discharge Plan Description Return Home Comment Pt advised overnight length of stay per surgeon Feels Safe in Current Environment Yes Been Physically Hurt or Threatened By a No Person in Current Environment Do you have thoughts of harming yourself None or others? Are you currently considering suicide? No Do you have a plan to hurt yourself or No Plan others? Do You Have Any Spiritual Beliefs That No May Affect Your HC Choices? Do You Have Any Cultural Practices That No May Affect Your HC Choices? Comment Vincenzo Who Can We Speak to About Patient's Care Family, friends Identifying Code for Release of Patient Delcines to issue Information Health Care Proxy/Next of Kin Lizz (S.O.) Health Care Proxy Emergency Contact Name Lizz (S.O.) Emergency Contact Advance Directives? Yes Advance Directives on File No Requested Patient Bring Advanced Yes Directives DOS Power of Drier And Pulverizer Tender No PAC Instructions Medications to take/avoid,No ETOH/petroleum product on skin DOS,NPO,Post-op transportation,Pre-surgical wash,Sturdy shoes/comfortable clothes,Do not bring valuables and remove jewelry
--- NOTE | 2023-06-23 13:55 | PM.PN.1 ---
Subjective Subjective Date Patient Seen: 06/23/23 Time Patient Seen: 07:20 Interval history: Postoperative day 1 status post radical retropubic prostatectomy and bilateral pelvic lymphadenectomy. Patient reports a restful an uneventful night. He had 1 small bowel movement and is passing gas. He tolerated the evening meal. He has been to and from the restroom as well as the bedside chair but has not ambulated in the hallway yet. He denies postoperative pain. Exam Vital Signs (past 8 hours): - 06/23/23 08:00 06/23/23 08:41 Temperature 99 F Pulse Rate 65 65 Respiratory Rate 16 Blood Pressure 143/68 H 143/68 H Pulse Oximetry 95 Oxygen Flow Rate 0 Oxygen Delivery Method Room Air Oxygen Flow Rate 0 Narrative Exam Narrative: The patient is sitting upright in bed and in no distress. Chest-equal and unlabored expansion bilaterally. Heart-normal rate and rhythm. Abdomen-dressing and GERA drain site intact in the drain is draining scant serosanguineous output. The drain is stripped without return of additional fluid. Extremity-no edema, cyanosis, or tenderness. Objective Labs 06/22/23 07:28 PFSH Medical History (Updated 06/15/23 @ 14:13 by Alanna Ramirez, RN) Easy bruisability Arthritis HLD (hyperlipidemia) Glaucoma Hypertension (~1989) Screening for colon cancer Erectile dysfunction BPH w urinary obs/LUTS Prostate cancer (~2018) Elevated PSA (~2018) Enlarged prostate with lower urinary tract symptoms (LUTS) Male erectile disorder Neoplasm of prostate Surgical History (Updated 06/15/23 @ 14:13 by Alanna Ramirez RN) Hx of colonoscopy (04/2023) Hx of bilateral cataract extraction Anesthesia History of hernia repair (~2003) History of ankle surgery (~1991) Hx of vasectomy Male circumcision History of back surgery (~1995) Family History Father History of heart disease Mother Diabetes mellitus History of heart disease Hyperlipidemia Hypertension Social History household members: significant other Smoking Status: Never smoker alcohol intake: current Assessment & Plan Assessment & Plan narrative: Assessment: 1. Stable postop day 1 status post radical retropubic prostatectomy and bilateral pelvic lymphadenectomy. 2. Pathology pending. Plan: 1. Increase diet and activity today. 2. Follow-up surgical pathology when report final. 3. Catheter care and bag use instruction prior to discharge. Quality VTE Deep Vein Thrombosis/Pulmonary Embolism Present on Admission: No
[2023-06-23] MEDS: OXYCODONE IR 5 MG TABLET PO (16:50)
[2023-06-23 20:10] VITALS: BP 137/65; PULSE 62; RESP 18; TEMP 37.1; O2SAT 97
[2023-06-23] MEDS: ATORVASTATIN 20 MG TABLET 10 MG PO (20:17)
[2023-06-24] MEDS: OXYCODONE IR 5 MG TABLET PO (04:18)
[2023-06-24] MEDS: ACETAMINOPHEN 325 MG TABLET 975 MG PO ×2 (04:18→10:46)
[2023-06-24 08:00] VITALS: BP 115/64; PULSE 64; RESP 16; TEMP 36.1; O2SAT 99
[2023-06-24 08:44] VITALS: BP 137/65; PULSE 67
[2023-06-24] MEDS: hydroCHLOROthiazide 25 MG TABLET 12.5 MG PO (08:44)
[2023-06-24] MEDS: lisinopriL 20 MG TABLET PO (08:44)
[2023-06-24] MEDS: METOPROLOL IR 25 MG TABLET PO (08:45)
[2023-06-24] MEDS: ENOXAPARIN 40 MG/0.4 ML SYRINGE SUBCUT (08:45)
--- NOTE | 2023-06-24 10:22 | CM.DPC ---
DCP Cont. Reviewed EMR and team rounds for status updates. Pt has been medically cleared and is planning to d/c later this am. He and his do have a ferry reservation, no further DCP needs indicated at this time.
--- NOTE | 2023-06-24 18:39 | PM.DS.1 ---
History of Present Illness History of Present Illness Date Patient Seen: 06/24/23 Time Patient Seen: 07:15 Chief complaint: INPT Narrative: 77-year-old male admitted on 06/22/2023 to undergo scheduled radical retropubic prostatectomy and bilateral pelvic lymphadenectomy. Discharge Providers Provider Date of admission: 06/22/23 06:27 Discharge Date: 06/24/23 Primary care physician: Lisa Koenig PA-C Discharge provider: Remy Bucio MD Exam Vital Signs (past 8 hours): Oxygen Delivery Method Room Air Oxygen Flow Rate 0 Narrative Exam Narrative: The patient is sitting upright in bedside chair in no acute distress. Head/neck-sclera clear and pupils are round and equal bilaterally. No visible evidence of adenopathy or JVD. Chest-equal and unlabored expansion bilaterally. Heart-normal sinus rhythm. Abdomen-dressing and GERA drain are intact GERA has scant serosanguineous output. Extremities. No cyanosis, clubbing, or tenderness. Objective Labs 06/22/23 07:28 PFSH Medical History (Updated 06/15/23 @ 14:13 by Alanna Ramirez RN) Easy bruisability Arthritis HLD (hyperlipidemia) Glaucoma Hypertension (~1989) Screening for colon cancer Erectile dysfunction BPH w urinary obs/LUTS Prostate cancer (~2018) Elevated PSA (~2018) Enlarged prostate with lower urinary tract symptoms (LUTS) Male erectile disorder Neoplasm of prostate Surgical History (Updated 06/15/23 @ 14:13 by Alanna Ramirez, DEEPAK) Hx of colonoscopy (04/2023) Hx of bilateral cataract extraction Anesthesia History of hernia repair (~2003) History of ankle surgery (~1991) Hx of vasectomy Male circumcision History of back surgery (~1995) Family History Father History of heart disease Mother Diabetes mellitus History of heart disease Hyperlipidemia Hypertension Social History household members: significant other Smoking Status: Never smoker alcohol intake: current Discharge Assessment & Plan Assessment and Plan Assessment: 1. Stable postoperative day 2 status post radical retropubic prostatectomy and bilateral pelvic lymphadenectomy. 2. Indwelling Ahmadi catheter. 3. Pathology pending. Plan of Treatment: 1. Discharge patient home today with indwelling catheter. 2. Instructed in proper care and use of leg bag and large bag. 3. Schedule supervise voiding trial in the Urology Clinic in approximately 2 weeks. 4. Telephonic follow-up of surgical pathology report when final. Discharge Plan Discharge Plan Patient Disposition: Home Discharge orders & Medications Prescriptions: New enoxaparin [Lovenox] 40 mg/0.4 mL Syringe 40 mg SUBCUT DAILY 30 Days Qty: 12 0RF ciprofloxacin HCl 250 mg tablet 250 mg PO Q12H Qty: 6 0RF oxycodone 5 mg Tablet 5 mg PO Q4H PRN (Reason: Pain, Moderate (4-6)) Qty: 15 0RF Continued simvastatin 20 mg tablet 20 mg PO BEDTIME Qty: 90 4RF metoprolol tartrate 25 mg tablet 25 mg PO DAILY Qty: 90 4RF lisinopril-hydrochlorothiazide 20-12.5 mg tablet 1 tab PO BID Qty: 180 4RF latanoprost 0.005 % drops 1 drp EYE-BOTH DAILY No Action acetaminophen [Tylenol Ex Str Arthritis Pain] 500 mg Tablet 1,000 mg PO PRN PRN (Reason: Pain (Scale Score 4-6)) Follow up/Referrals: Lisa Koenig PA-C [Primary Care Provider] - Activity Restrictions/Additional Instructions: Avoid lifting objects greater than 15 lb x 4 weeks. Diet/Activity/Treatments Diet: Diet as Tolerated Activity: Ambulate frequently. Avoid lifting objects greater than 15 lb x 4 weeks. Cold/Heat Therapy: As needed for comfort. Catheter: 2-way Ahmadi Catheter comment: Leg bag-day use. Large bag-in-home and during night. Skin/Wound/Dressing Care Skin care: May shower daily. Leave incision open to air. Avoid submersion under wate Report to your healthcare provider any signs of infection, such as:: chills, fever, night sweats, increased pain, unusual drainage and unusual redness Visit Report/Discharge Packet Instructions: How to Care for Your Ahmadi Catheter -- Male, DI for Radical Prostatectomy, DI for Prescription Opioid Use Stand Alone Forms: Stroke Signs & Symptoms, Surgery Discharge Discharge Data Primary Care Provider: Lisa Koenig VTE Deep Vein Thrombosis/Pulmonary Embolism Present on Admission: No
== END 2023-06-24 10:48 | disposition home or self-care (01) | DRG 707 ==
PROVIDERS: Admitting Provider Specialist; PCP Physician Assistant; Referring Provider Specialist; Visit Provider Specialist
PROC: 0VT00ZZ Resection of Prostate, Open Approach (ICD-10-PCS; principal; 2023-06-22 07:45)
DX: C61 Malignant neoplasm of prostate (principal); N13.8 Other obstructive and reflux uropathy; N40.1 Benign prostatic hyperplasia with lower urinary tract symptoms; E78.5 Hyperlipidemia, unspecified; I10 Essential (primary) hypertension; H40.9 Unspecified glaucoma
CPT/HCPCS: 36415; 55845; 81001; 85014; 85018; 86850; 86900; 86901; C9290; J0136; J0690; J1650; J2405; J2704; J3010

== ENCOUNTER → 2023-08-03 13:05 | Outpatient (CLI) | payer MEDICARE, SELFPAY ==
[2023-07-16 13:39] VITALS: BMI 25.0
[2023-08-03 20:41] LABS: Prostate Specific Antigen < 0.064 ng/mL (0.10-4.00)
== END ==
PROVIDERS: PCP Physician Assistant; Visit Provider Specialist
DX: C61 Malignant neoplasm of prostate (principal)
CPT/HCPCS: 84153